=== PATIENT | female | born 1945 | race Two or more races ===

== ENCOUNTER → 2017-08-10 | Outpatient (CLI) | payer MEDICARE ==
[2017-08-10 11:17] LABS: HGB 10.6 gm/dL (11.4-16.0); MCH 30.5 pg (25.0-35.0); MCHC 32.1 g/dL (31.0-37.0); Mean Platelet Volume 7.4; Platelet Count 309 k/uL (150-450); RBC 3.47 m/uL (3.80-5.40); RDW 13.6 % (11.5-15.5); WBC 6.6 k/uL (3.8-10.6)
[2017-08-10 11:20] LABS: Anion Gap 11 mmol/L; Blood Urea Nitrogen 18 mg/dL (7-17); Calcium 9.4 mg/dL (8.4-10.2); Carbon Dioxide 27 mmol/L (22-30); Chloride 102 mmol/L (98-107); Glucose 165 mg/dL (74-99); Potassium 4.7 mmol/L (3.5-5.1); Sodium 140 mmol/L (137-145)
[2017-08-10 11:34] LABS: T4, Free (Free Thyroxine) 1.13 ng/dL (0.78-2.19)
== END | disposition home or self-care (01) ==
LOC: LABWHC1 10:43
PROVIDERS: ATTEND Internal Medicine Interventional Cardiology
DX: E11.9 Type 2 diabetes mellitus without complications (principal); I25.10 Atherosclerotic heart disease of native coronary artery without angina pectoris
CPT/HCPCS: 36415; 80048; 84439; 84443; 85027

== ENCOUNTER → 2017-09-29 | Outpatient (CLI) | payer MEDICARE ==
[2017-09-29 17:09] LABS: HCT 37.8 % (34.0-46.0); HGB 12.3 gm/dL (11.4-16.0); MCH 30.2 pg (25.0-35.0); MCHC 32.5 g/dL (31.0-37.0); Mean Platelet Volume 7.6; Platelet Count 218 k/uL (150-450); RBC 4.07 m/uL (3.80-5.40); RDW 13.1 % (11.5-15.5); WBC 5.7 k/uL (3.8-10.6)
[2017-09-29 17:24] LABS: Anion Gap 13 mmol/L; Blood Urea Nitrogen 13 mg/dL (7-17); Calcium 9.7 mg/dL (8.4-10.2); Carbon Dioxide 26 mmol/L (22-30); Chloride 104 mmol/L (98-107); Glucose 167 mg/dL (74-99); Potassium 4.2 mmol/L (3.5-5.1); Sodium 143 mmol/L (137-145)
== END | disposition home or self-care (01) ==
LOC: LABWHC1 16:25
PROVIDERS: ATTEND Internal Medicine Interventional Cardiology
DX: E11.9 Type 2 diabetes mellitus without complications (principal); I25.10 Atherosclerotic heart disease of native coronary artery without angina pectoris
CPT/HCPCS: 36415; 80048; 85027

== ENCOUNTER → 2017-10-18 | Day surgery (SDC) | payer MEDICARE ==
[2017-10-12 15:45] VITALS: BMI 26.4
[~2017-10-18] MED LIST: ALPRAZolam 0.25 MG TAB PO PRN; ASPIRIN 325 MG TAB PO STA; SODIUM CHLORIDE 0.9% 1,000 ML in EMPTY BAG 1 BAG IV ONE
[2017-10-18 10:21] LABS: Glucose,Whole Blood 163 mg/dL (75-99)
[2017-10-18 10:29] VITALS: BP 146/68; PULSE 69; RESP 20; TEMP 98.1
== END ==
LOC: CATHCVL 09:20
PROVIDERS: ATTEND Internal Medicine Interventional Cardiology
DX: Z53.8 Procedure and treatment not carried out for other reasons (principal)

== ENCOUNTER 2017-10-19 06:03 | Day surgery (SDC) | payer MEDICARE ==
[2017-10-19] MEDS ORDERED: INSULIN ASPART 100 UNIT/ML 1 ML 10 ML VIAL SQ ONE (07:01)
[2017-10-19 07:18] LABS: Glucose,Whole Blood 212 mg/dL (75-99)
[2017-10-19] MEDS ORDERED: IV FLUID CONTINUATION 1,000 ML IV ONE (07:25)
[2017-10-19] MEDS ORDERED: diphenhydrAMINE 50 MG/ML 1 ML VIAL IVP ONE (07:30)
[2017-10-19] MEDS ORDERED: MIDAZOLAM 2 MG/2 ML VIAL IV ONE (07:30)
[2017-10-19] MEDS: NITROGLYCERIN SL TABS 0.4 MG TAB SUBLINGUAL ONE ×2 (07:33→07:46)
[2017-10-19] MEDS ORDERED: LIDOCAINE 2% INJ 20 MG/ML SQ ONE ×2 (07:38→07:39)
[2017-10-19] MEDS: NITROGLYCERIN 1000MCG/10ML SYRINGE INTRAARTER ONE ×4 (07:51→09:02)
[2017-10-19] MEDS ORDERED: BIVALIRUDIN BOLUS 250 MG/50 ML IV ONE (08:06)
[2017-10-19] MEDS ORDERED: BIVALIRUDIN 250 MG in SODIUM CHLORIDE 0.9% 50 ML IV ONE ×2 (08:07→08:46)
[2017-10-19] MEDS ORDERED: IOHEXOL 350 MG/ML 125ML BOTTLE INJ ONE (09:03)
[2017-10-19] MEDS ORDERED: CLOPIDOGREL 75 MG TAB PO ONE (09:05)
[2017-10-19] MEDS ORDERED: RX INFO: IV CONTRAST WAS GIVEN 1 EACH MISC MISCELLANE PRN (09:07)
[2017-10-19] MEDS ORDERED: NITROGLYCERIN SL TABS 0.4 MG TAB SUBLINGUAL PRN ×2 (09:07→09:34)
[2017-10-19] MEDS ORDERED: ATROPINE SULFATE 0.1 MG/ML 10ML SYRINGE IV PRN (09:07)
[2017-10-19] MEDS ORDERED: ZOLPIDEM 5 MG TAB PO PRN (09:07)
[2017-10-19] MEDS ORDERED: MAG HYDROX/AL HYDROX/SIMETH 30 ML CUP PO PRN (09:07)
[2017-10-19] MEDS ORDERED: ACETAMINOPHEN TAB 325 MG TAB PO PRN (09:34)
[2017-10-19 12:43] LABS: Glucose,Whole Blood 136 mg/dL (75-99)
--- NOTE | 2017-10-19 14:52 | CC ---
CARDIAC CATHETERIZATION REPORT DATE OF SERVICE: 10/19/2017. PROCEDURES: 1. Coronary angiography. 2. 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 Treated with drug-eluting stents. ANESTHESIA: Moderate conscious sedation time 88 minutes. CLINICAL INFORMATION: Mrs. Margarita Hawk is a 72-year-old lady with a history of type 2 diabetes, hypertension, hyperlipidemia, who also has significant two-vessel disease. On July 30, 2017 I performed stenting of a relatively large bifurcation lesion involving the circumflex with a good result. I brought her back because of significant ischemia in the RCA distribution and right coronary artery was a almost a chronic total occlusion in the midportion as well as disease in the ostium and proximal segment as well. Distal flow was somewhat poor and there appeared to be a chronic total occlusion with possibly bridging collaterals in the midportion. She was brought in for the procedure electively. PROCEDURE NOTE: Under local anesthesia and strict aseptic precautions, a 6-Thai introducer was placed in the right femoral artery. I performed coronary angiography of the left system to check the patency of circumflex as well as to look at the LAD as well. I then used a right August type guide catheter of 6-Thai caliber to cannulate the right coronary artery. Using a run-through wire, I was able to cross the total occlusion in the midportion, wire was kept distally. I then used a 2.0 caliber balloon to pre-dilate the proximal portion of the RCA. I switched over to 1.5, 15 mm balloon. With this I dilated the mid and distal segments of the RCA. I then used the same 2.0 balloon to dilate the mid and distal segments of the RCA. I used a 2.5 caliber NC Trek balloon with this I dilated the proximal portion. After getting a decent result with balloon angioplasty, I then started deploying stents. Very distally a 2.25 caliber 15 mm Xience stent was deployed and proximal to it were two 2.5 caliber stents of 15 and 12 mm length. The 2 proximal stents were of 2.75 caliber and the most proximal stent actually was in the ostium itself. Excellent angiographic result was achieved with a decent distal flow. Patient tolerated procedure well without complications. An Angio- Seal device was used to secure hemostasis. The patient received Angiomax bolus and infusion as per protocol and she was already on aspirin and Plavix and received additional 150 mg. Results were discussed with the patient and family and I expect she will be discharged tomorrow. CORONARY ANGIOGRAPHY FINDINGS: RIGHT CORONARY ARTERY: This vessel is a chronically occluded vessel in the midportion with probably bridging collaterals, dominant vessel and the caliber of the vessel is quite small distally and there is also some ostial disease with damping on cannulation. This is a dominant RCA. LEFT MAIN CORONARY ARTERY: Short patent disease-free vessel that bifurcates into LAD and circumflex. LEFT ANTERIOR DESCENDING CORONARY ARTERY: Fair caliber vessel extends along the antral wall, gives off septal and diagonal branches, has about a 30-35% narrowing, but no significant disease. LEFT POSTERIOR CIRCUMFLEX CORONARY ARTERY: Nondominant, fair caliber and distribution vessel. In the mid circumflex at the bifurcation, there was a stent placed in the main circumflex as well as in the branch and also I had performed a provisional stenting of the branch as well. Both these branches are widely patent with brisk LUL-3 flow and no evidence of any significant restenosis. FINAL IMPRESSION: This patient has widely patent circumflex system, but highly diseased RCA which is a probably a chronic total occlusion in the midportion and this is a dominant vessel. The LAD has no significant disease. RECOMMENDATION: I recommend intervention of the RCA and that was performed in the same setting. The details of the procedure are noted above. Excellent angiographic result was achieved. Drug-eluting stents were deployed. MMTERE / CARLON: [id number] /
[2017-10-19 17:22] LABS: Glucose,Whole Blood 237 mg/dL (75-99)
[2017-10-19] MEDS: SODIUM CHLORIDE 0.9% 1,000 ML IV SCH ×2 (17:40→20:32)
[2017-10-19] MEDS: HUMALOG MIX SQ SCH (17:41)
[2017-10-19] MEDS: INSULIN ASPART 100 UNIT/ML 1 ML 10 ML VIAL SQ SCH ×2 (17:42→21:19)
[2017-10-19] MEDS: CARVEDILOL 3.125 MG TAB PO SCH (19:28)
[2017-10-19] MEDS: GABAPENTIN 300 MG CAP PO SCH (20:31)
[2017-10-19 20:50] LABS: Glucose,Whole Blood 211 mg/dL (75-99)
[2017-10-19] MEDS ORDERED: ATORVASTATIN 80 MG TAB PO SCH (21:00)
[2017-10-20] MEDS: HUMALOG MIX SQ SCH (05:12)
[2017-10-20 05:46] LABS: Glucose,Whole Blood 196 mg/dL (75-99)
[2017-10-20] MEDS: CARVEDILOL 3.125 MG TAB PO SCH (06:17)
[2017-10-20] MEDS: INSULIN ASPART 100 UNIT/ML 1 ML 10 ML VIAL SQ SCH ×2 (06:17→12:31)
[2017-10-20 07:29] LABS: Basophils # (A) 0.1 k/uL (0-0.2); Basophils % (A) 1 %; Eosinophils # (A) 0.1 k/uL (0-0.7); Eosinophils % (A) 2 %; HCT 35.1 % (34.0-46.0); HGB 11.5 gm/dL (11.4-16.0); Lymphocytes # (A) 1.2 k/uL (1.0-4.8); Lymphocytes % (A) 22 %; MCH 29.4 pg (25.0-35.0); MCHC 32.8 g/dL (31.0-37.0); MCV 89.8 fL (80.0-100.0); Mean Platelet Volume 7.8; Monocytes # (A) 0.4 k/uL (0-1.0); Monocytes % (A) 8 %; Neutrophils # (A) 3.6 k/uL (1.3-7.7); Neutrophils % (A) 65 %; Platelet Count 180 k/uL (150-450); RBC 3.92 m/uL (3.80-5.40); WBC 5.6 k/uL (3.8-10.6)
[2017-10-20] MEDS: GABAPENTIN 300 MG CAP PO SCH (07:49)
[2017-10-20 08:06] LABS: Anion Gap 9 mmol/L; Blood Urea Nitrogen 14 mg/dL (7-17); Calcium 9.1 mg/dL (8.4-10.2); Carbon Dioxide 26 mmol/L (22-30); Chloride 105 mmol/L (98-107); Glucose 196 mg/dL (74-99); Potassium 4.2 mmol/L (3.5-5.1); Sodium 140 mmol/L (137-145)
[2017-10-20] MEDS ORDERED: CLOPIDOGREL 75 MG TAB PO SCH (09:00)
[2017-10-20] MEDS ORDERED: LINAGLIPTIN 5 MG TABLET PO SCH (09:00)
[2017-10-20] MEDS ORDERED: LOSARTAN 25 MG TAB PO SCH (09:00)
[2017-10-20] MEDS ORDERED: ASPIRIN 81 MG PO SCH (09:00)
[2017-10-20] MEDS ORDERED: NON-FORMULARY DRUG (Fish Oil/Dha/Epa [Fish Oil 1,200 Mg Fish Oil] 1 CAP) PO SCH (09:00)
[2017-10-20] MEDS ORDERED: FERROUS SULFATE 325 MG TAB PO SCH (09:00)
[2017-10-20 09:39] VITALS: RESP 18
[2017-10-20 11:25] VITALS: BMI 26.0
[2017-10-20 11:27] LABS: Glucose,Whole Blood 222 mg/dL (75-99)
[2017-10-20] MEDS ORDERED: MULTIVITAMINS, THERA 1 EACH TAB PO SCH (12:00)
--- NOTE | 2017-10-20 13:07 | P.DS ---
Providers Date of admission: 10/19/2017 Expected date of discharge: 10/20/17 Attending physician: John Hamilton Consults: 10/19/17 09:07 Consult Physician Routine Consulting Provider: [facility] Reason/Comments: Post Interventional patient Do you want consulting provider notified?: Already Contacted [facility] Course: Mrs. Hawk is a pleasant 72-year-old female who was brought in yesterday for elective staged intervention of the RCA. Initial catheterizaiton was performed in July 2017. She had significant ischemia in the RCA distribution. This was almost a chronic total occlusion in the midportion. She also had disease in the ostium and proximal segments. She underwent successful angioplasty of the mid and distal segments of the RCA. She received a total of 3 stents in the RCA. Excellent angiographic results noted. The procedure was performed via the right femoral artery Angio-Seal device was used to secure hemostasis. Upon reexamination this morning she is seen resting comfortably in bed with family at the bedside. She has no symptoms of angina. She denies chest pain, shortness of breath, dizziness, palpitations, diaphoresis, nausea or vomiting. She has been up ambulating in the halls without difficulty. She denies pain to the right groin or leg. Right groin is examined soft nontender no evidence of hematoma. 1+ pulse in the right foot. A follow-up appointment has been made with Dr. Hamilton 10/27. Her medications will remain the same. There are no new prescriptions. Plan of care has been discussed with the patient and she verbalizes understanding as well as her family. Instructions have been given for no exertional activity until her follow-up appointment. No heavy lifting, no extreme pushing or pulling and no exercise. Site is clean dry and intact, dressing removed. EKG this morning shows first-degree AV block with no acute ST or T-wave. Laboratory data reviewed, hemoglobin 11.5, platelets 180, potassium 4.2, creatinine 0.59. Blood pressure 113/54 heart rate 79 afebrile maintaining oxygen saturation on room air respirations equal and unlabored GENERAL: Well-appearing, well-nourished and in no acute distress. NECK: Supple without JVD or thyromegaly. LUNGS: Breath sounds clear to auscultation bilaterally. Respiration equal and unlabored. No wheezes, rales or rhonchi. HEART: Regular rate and rhythm without murmurs, rubs or gallops. S1 and S2 heard. EXTREMITIES: Normal range of motion, no edema. No clubbing or cyanosis. Peripheral pulses intact and strong. Right femoral pulses strong. Site clean dry and intact with no tenderness on palpation, no evidence of hematoma, no bruising at the site. Dorsalis pedis pulses 1+ bilaterally. Procedures: Cardiac catheterization with angioplasty Patient Condition at Discharge: Good Plan - Discharge Summary New Discharge Prescriptions: Continue Insulin Lispro Protamin/Lispro [humaLOG Mix 50-50 Kwikpen] 40 units SQ BID-W/ MEALS Gabapentin 600 mg PO TID Multivit-Min/FA/Lycopen/Lutein [Centrum Silver Tablet] 1 tab PO DAILY Fish Oil/Dha/Epa [Fish Oil 1,200 mg Fish Oil] 1 cap PO DAILY Acetaminophen [Tylenol Arthritis] 650 mg PO DAILY PRN PRN Reason: Pain sitaGLIPtin PHOSPHATE [Januvia] 100 mg PO DAILY Aspirin 81 mg PO DAILY #30 chew Atorvastatin [Lipitor] 80 mg PO HS #30 tab Clopidogrel [Plavix] 75 mg PO DAILY #30 tab Losartan [Cozaar] 12.5 mg PO DAILY #30 tab Nitroglycerin Sl Tabs [Nitrostat] 0.4 mg SUBLINGUAL Q5M PRN #25 tab PRN Reason: Chest Pain Ferrous Sulfate [Iron (65 MG Elemental)] 325 mg PO DAILY Carvedilol [Coreg] 3.125 mg PO BID-W/MEALS #0 Discontinued Omeprazole 20 mg PO DAILY Discharge Medication List Acetaminophen [Tylenol Arthritis] 650 mg PO DAILY PRN 07/27/17 [History] Fish Oil/Dha/Epa [Fish Oil 1,200 mg Fish Oil] 1 cap PO DAILY 07/27/17 [History] Gabapentin 600 mg PO TID 07/27/17 [History] Insulin Lispro Protamin/Lispro [humaLOG Mix 50-50 Kwikpen] 40 units SQ BID-W/ MEALS 07/27/17 [History] Multivit-Min/FA/Lycopen/Lutein [Centrum Silver Tablet] 1 tab PO DAILY 07/27/17 [ History] sitaGLIPtin PHOSPHATE [Januvia] 100 mg PO DAILY 07/29/17 [History] Aspirin 81 mg PO DAILY #30 chew 07/31/17 [Rx] Atorvastatin [Lipitor] 80 mg PO HS #30 tab 07/31/17 [Rx] Clopidogrel [Plavix] 75 mg PO DAILY #30 tab 07/31/17 [Rx] Losartan [Cozaar] 12.5 mg PO DAILY #30 tab 07/31/17 [Rx] Nitroglycerin Sl Tabs [Nitrostat] 0.4 mg SUBLINGUAL Q5M PRN #25 tab 07/31/17 [Rx ] Ferrous Sulfate [Iron (65 MG Elemental)] 325 mg PO DAILY 10/12/17 [History] Carvedilol [Coreg] 3.125 mg PO BID-W/MEALS #0 10/19/17 [Rx] Follow up Appointment(s)/Referral(s): John Hamilton MD [STAFF PHYSICIAN] - 10/27/17 4:30 pm Patient Instructions/Handouts: *[facility] - After Heart Catheterization - Moisture Meter Operator Instructions, Heart Healthy Diet (DC), Coronary Intravascular Stent Placement (DC) Discharge Disposition: HOME SELF-CARE
[2017-10-20 13:09] VITALS: BP 149/67; PULSE 78; TEMP 98.6
[2017-10-20 14:27] LABS: Hemoglobin A1C 6.6 % (4.0-6.0)
== END 2017-10-20 13:29 | disposition home or self-care (01) ==
LOC: CATHCVL 06:03 → 6SEL 09:05 → CATHCVL 10-20 13:29
PROVIDERS: ATTEND Internal Medicine Interventional Cardiology
DX: I25.110 Atherosclerotic heart disease of native coronary artery with unstable angina pectoris (principal); I25.82 Chronic total occlusion of coronary artery; I44.0 Atrioventricular block, first degree; E11.9 Type 2 diabetes mellitus without complications; I10 Essential (primary) hypertension; N19 Unspecified kidney failure; E78.00 Pure hypercholesterolemia, unspecified; Z95.5 Presence of coronary angioplasty implant and graft; Z86.711 Personal history of pulmonary embolism; Z82.49 Family history of ischemic heart disease and other diseases of the circulatory system; Z79.02 Long term (current) use of antithrombotics/antiplatelets; Z79.82 Long term (current) use of aspirin; Z79.4 Long term (current) use of insulin; Z79.899 Other long term (current) drug therapy
CPT/HCPCS: 93454; 80048; 85025; 83036; C9607; C1760; C1887; C1725 ×4; C1769 ×3; C1894; C1874; J2001; J2250; J1200; J0583; Q9967

== ENCOUNTER 2018-01-20 22:10 | Emergency (ER) | payer MEDICARE ==
[2018-01-20 22:15] VITALS: RESP 16
[2018-01-20 22:18] LABS: Glucose,Whole Blood 67 mg/dL (75-99)
--- NOTE | 2018-01-20 22:40 | ED ---
General Adult HPI - General Chief complaint: Recheck/Abnormal Lab/Rx Stated complaint: Diabetic issues Time Seen by Provider: 01/20/18 22:13 Source: patient, family, EMS, RN notes reviewed, old records reviewed Mode of arrival: EMS - History of Present Illness Initial comments: This is a 72-year-old female the ER for evaluation of low blood sugar. Patient is recent recently started on insulin, patient had blood sugar dropped 2 at home brought in by EMS his blood sugar underlying normal currently. Patient is eating. History of diabetes. Denies any recent nausea vomiting or diarrhea. Patient denies anorexia will she does feel mildly lightheaded and dizzy. - Related Data Home Medications Medication Instructions Recorded Confirmed Acetaminophen [Tylenol Arthritis] 650 mg PO Q8H PRN 07/27/17 01/20/18 Fish Oil/Dha/Epa [Fish Oil 1,200 1 cap PO DAILY 07/27/17 01/20/18 mg Fish Oil] Insulin Lispro Protamin/Lispro 45 units SQ BID-W/MEALS 07/27/17 10/19/17 [humaLOG Mix 50-50 Kwikpen] Multivit-Min/FA/Lycopen/Lutein 1 tab PO DAILY 07/27/17 01/20/18 [Centrum Silver Tablet] sitaGLIPtin PHOSPHATE [Januvia] 100 mg PO DAILY 07/29/17 01/20/18 Aspirin 325 mg PO DAILY 01/20/18 01/20/18 Atorvastatin [Lipitor] 20 mg PO HS 01/20/18 01/20/18 Baclofen [Lioresal] 10 mg PO HS 01/20/18 01/20/18 Losartan/Hydrochlorothiazide 1 tab PO DAILY 01/20/18 01/20/18 [Hyzaar 100-25 Tablet] Omeprazole [PriLOSEC] 20 mg PO AC-BRKFST 01/20/18 01/20/18 Allergies Allergy/AdvReac Type Severity Reaction Status Date / Time adhesive tape Allergy Rash/Hives Verified 01/20/18 22:36 Review of Systems ROS Statement: Those systems with pertinent positive or pertinent negative responses have been documented in the HPI. ROS Other: All systems not noted in ROS Statement are negative. Past Medical History Past Medical History: Chest Pain / Angina, CVA/TIA, Diabetes Mellitus, GERD/ Reflux, Hyperlipidemia, Hypertension, Osteoarthritis (OA), Pulmonary Embolus (PE ) Additional Past Medical History / Comment(s): See Cardiology H&P,?TIA 2013,PE 2013,arthritis & back pain History of Any Multi-Drug Resistant Organisms: None Reported Past Surgical History: Cholecystectomy Additional Past Surgical History / Comment(s): cataracts,breast bx. 5 stents to RCA 10/19/17 Past Anesthesia/Blood Transfusion Reactions: No Reported Reaction Past Psychological History: No Psychological Hx Reported Smoking Status: Never smoker Past Alcohol Use History: None Reported Past Drug Use History: None Reported - Past Family History Mother Family Medical History: Cancer General Exam General appearance: alert, in no apparent distress Head exam: Present: atraumatic, normocephalic, normal inspection Eye exam: Present: normal appearance, PERRL, EOMI. Absent: scleral icterus, conjunctival injection, periorbital swelling ENT exam: Present: normal exam, mucous membranes moist Neck exam: Present: normal inspection. Absent: tenderness, meningismus, lymphadenopathy Respiratory exam: Present: normal lung sounds bilaterally. Absent: respiratory distress, wheezes, rales, rhonchi, stridor Cardiovascular Exam: Present: regular rate, normal rhythm, normal heart sounds. Absent: systolic murmur, diastolic murmur, rubs, gallop, clicks GI/Abdominal exam: Present: soft, normal bowel sounds. Absent: distended, tenderness, guarding, rebound, rigid Extremities exam: Present: normal inspection, full ROM, normal capillary refill. Absent: tenderness, pedal edema, joint swelling, calf tenderness Back exam: Present: normal inspection Neurological exam: Present: alert, oriented X3, CN II-XII intact Psychiatric exam: Present: normal affect, normal mood Skin exam: Present: warm, dry, intact, normal color. Absent: rash Course Vital Signs 01/20/18 01/20/18 22:11 22:43 Temperature 97.1 F L 97.1 F L Pulse Rate 83 86 Respiratory 16 16 Rate Blood Pressure 171/74 183/79 O2 Sat by Pulse 97 95 Oximetry - Reevaluation(s) Reevaluation #1: 01/20/18 23:08 Patient is able to eat, eating appropriately Reevaluation #2: 01/20/18 23:09 Patient's blood sugars improved, acting appropriately Medical Decision Making - Medical Decision Making 72 female the ER for evaluation of hyperglycemia. Blood sugar low blood sugars resolved. Patient's eating, patient can be discharged home - Lab Data Lab Results 01/20/18 01/20/18 Range/Units 22:17 22:40 POC Glucose (mg/dL) 67 L 87 (75-99) mg/dL POC Glu Trimming Caser ID Brittany Rapp Disposition Clinical Impression: Diabetic hypoglycemia Disposition: HOME SELF-CARE Condition: Good Instructions: Hypoglycemia in a Person with Diabetes (ED) Is patient prescribed a controlled substance at d/c from ED?: No Referrals: Yenni Terrell III, MD [Primary Care Provider] - 1-2 days
[2018-01-20 23:00] LABS: Glucose,Whole Blood 87 mg/dL (75-99)
[2018-01-20] MEDS ORDERED: hydrALAZINE HCL 20 MG/ML 1 ML VIAL IVP STA (23:21)
[2018-01-20 23:43] VITALS: PULSE 87
[2018-01-20 23:58] VITALS: BP 178/82; TEMP 97.6
== END 2018-01-21 00:06 | disposition home or self-care (01) ==
LOC: EC 22:10
DX: E11.649 Type 2 diabetes mellitus with hypoglycemia without coma (principal); K21.9 Gastro-esophageal reflux disease without esophagitis; E78.5 Hyperlipidemia, unspecified; I10 Essential (primary) hypertension; Z86.73 Personal history of transient ischemic attack (TIA), and cerebral infarction without residual deficits; Z79.4 Long term (current) use of insulin; Z79.82 Long term (current) use of aspirin; Z79.899 Other long term (current) drug therapy; Z91.048 Other nonmedicinal substance allergy status
CPT/HCPCS: 36415; 99285; 96374; J0360

== ENCOUNTER → 2020-04-12 | Outpatient (CLI) | payer MEDICARE ==
--- NOTE | 2020-04-12 13:12 | XR ---
EXAMINATION TYPE: XR lumbar spine 2 or 3V DATE OF EXAM: 04/12/2020 Comparison: None Clinical History: 74-year-old female M25.552, M54.16, M54.5 Findings: Leftward truncal shift. Osteopenia. Cholecystectomy clips. Bulky anterior and plate spondylosis L2-L3 . Prominent grade 1 anterolisthesis at L4-L5. Advanced hypertrophic facet arthropathy mid to lower gavin mbar spine. Remaining alignment is maintained. Scattered mild degenerative disc disease throughout. V ertebral body heights are preserved. Impression: 1. Leftward truncal shift could be positional or due to muscle spasm. 2. Advanced hypertrophic facet arthropathy mid to lower lumbar spine with prominent grade 1 anterolis thesis at L4-L5. 3. Bulky anterior endplate spondylosis L2-L3. Mild multilevel degenerative disc disease.
--- NOTE | 2020-04-12 13:16 | XR ---
EXAMINATION TYPE: XR Hip Complete LT DATE OF EXAM: 04/12/2020 COMPARISON: NONE HISTORY: 74-year-old female with pain. M25.552, M54.16, M54.5 TECHNIQUE: 2 views FINDINGS: Mild to moderate degenerative change of the left hip with prominent marginal spurring and mild axial joint space narrowing. Possible subtle lucency involving the inferior pubic ramus on the AP view. Thi s is not as well-demonstrated on the lateral view, possibly projectional. There is some faint calcifi cations projecting in the region of the ischial tuberosity that could relate to chronic hamstrings te ndinopathy. Vascular calcifications are also present. No acute fracture, subluxation, dislocation is seen. IMPRESSION: 1. Mild to moderate left hip OA. No acute osseous abnormality seen. 2. Questionable vague hypodensity involving the inferior pubic ramus and some adjacent faint soft tis nayeli calcifications. The calcifications may relate to chronic hamstring tendinopathy and the hypodensi ty may be technical artifact. Given the patient's pain, CT recommended to exclude an abnormal permeat camron/erosive process.
== END | disposition home or self-care (01) ==
LOC: RADXRMAIN 11:43
PROVIDERS: ATTEND Physician Assistant Medical
DX: M16.12 Unilateral primary osteoarthritis, left hip (principal); M43.16 Spondylolisthesis, lumbar region; M51.16 Intervertebral disc disorders with radiculopathy, lumbar region; M47.26 Other spondylosis with radiculopathy, lumbar region
CPT/HCPCS: 72100; 73502

== ENCOUNTER → 2024-01-31 | Outpatient (CLI) | payer MEDICARE ==
[2024-01-31 10:44] LABS: African American GFR (CKD) 87 (>60 ml/min/1.73 sqM); Blood Urea Nitrogen 26 mg/dL (7-17); Non-African American GFR(CKD) 76 (>60 ml/min/1.73 sqM)
--- NOTE | 2024-01-31 13:23 | CT ---
EXAMINATION TYPE: CT angio abd aorta w/Runoff DATE OF EXAM: 01/31/2024 COMPARISON: 06/03/2013 HISTORY: 78-year-old female I70.211 PAD, pt states RT leg is worse than LT. TECHNIQUE: Contiguous axial scanning of the abdomen and pelvis performed without and with IV Contrast , patient injected with 100 mL of Isovue 370. Post contrast exam performed with bilateral lower extre mity runoff. Coronal/sagittal reconstructions performed. 3-D reconstructions generated on a dedicated independent workstation. CT DLP: 1263.60 mGycm Automated exposure control for dose reduction was used. FINDINGS: Abdomen pelvis: Heart borderline enlarged without pericardial effusion. Three-vessel coronary artery calcifications a re present. Some mild scattered interstitial fibrosis in the lower lungs. No pleural effusion. Small hiatal hernia. Noncontrast and arterial phase imaging of the liver, adrenal glands, spleen, and pancreas show no samantha ss anomaly. Bile duct shows increasing caliber now 1.3 cm versus 9 mm in 2013, probably related to chronic postch olecystectomy status. Cortical defects right greater than left kidneys likely due to development of interval vascular infec tious insults. 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 No nephrolithiasis or hydronephrosis is seen. No dilated small bowel, free fluid, or free air. No mesenteric or retroperitoneal lymphadenopathy. There is a fatty umbilical hernia measuring 6.7 cm wide now versus 5.7 cm in 2013. Scattered mild to moderate stool burden. No pericolic inflammatory change. Bladder is urine distended. Uterus surgically absent. Pelvic floor relaxation. Multiple pelvic phlebo liths. Ovaries not clearly seen. No abnormal fluid collection in the pelvis or pelvic lymphadenopathy . Bones: Baastrup's disease. Severe hypertrophic facet arthropathy throughout with degenerative grade 1 buffy listhesis L4-L5. Severe spinal canal stenosis. L4-L5. Vasculature: Scattered mild to moderate atherosclerotic calcifications abdominal aorta and common iliac arteries. No aneurysm. There is a replaced proper hepatic artery which arises from the SMA. Scattered mild atherosclerotic c hanges are present within both the celiac axis and SMA. [id number] atherosclerotic narrowing proximal right renal artery and mild at the possible left renal artery. Right: Mild segmental stenosis proximal right common iliac artery secondary to mixed plaque. LEAD COATER is patent. PFA is patent. Moderate atherosclerotic change throughout the SFA. There may be a moderate to severe focal stenosis distal SFA at the adductor hiatus. Axial image 306. Possible severe atherosclerotic stenosis upper popliteal artery, axial image 319. Moderate stenosis throughout the remainder of the popliteal artery. Severe focal stenosis lower popliteal artery just before the takeoff of the anterior tibial artery. Moderate stenosis at the origin of the anterior tibial artery with single vessel runoff. There is occ lusion at the tibial peroneal trunk. Left: The LEAD COATER and PFA are patent. Mild atherosclerotic narrowing throughout the SFA. Severe focal stenosis proximal popliteal artery, axial image 314 followed by moderate atherosclerotic irregularity throughout the remainder of the popliteal artery. Anterior tibial artery is patent with mild narrowing at its origin. [id number] atherosclerotic irregularity within the tibial peroneal trunk with a severe focal st enosis at its bifurcation, axial image 399. Visualization of the peroneal artery. There is occlusion of the posterior tibial artery. Two-vessel runoff via the anterior tibial and peroneal arteries. IMPRESSION: RIGHT: 1. A moderate to severe focal stenosis distal SFA at the adductor hiatus. 2. Severe focal stenosis of both the proximal popliteal artery and also distal popliteal artery just before the takeoff of the anterior tibial artery. 3. Moderate focal stenosis of the origin of the anterior tibial artery. This vessel provides for sing le vessel runoff. 4. Occlusion at the tibioperoneal trunk. Left: 5. Severe focal stenosis proximal popliteal artery with moderate atherosclerotic irregularity through out the remainder of the popliteal artery. 6. Severe focal stenosis distal tibial peroneal trunk. 7. Occluded posterior tibial artery. 8. Two-vessel runoff via the anterior tibial and peroneal arteries. Abdomen and pelvis: 9. Cortical defects within the kidneys suggesting interval development of multiple infectious or vasc ular insults as compared to 2013. 10. Moderate sized fatty umbilical hernia now 6.7 cm, increased from 2013. 11. Pelvic floor relaxation. Status post hysterectomy. 12. Hypertrophic facet arthropathy with degenerative grade 1 anterolisthesis at L4-L5 with suspected severe focal spinal canal stenosis here.
== END | disposition home or self-care (01) ==
LOC: RADCTMAIN 10:11
PROVIDERS: ATTEND Internal Medicine
DX: I70.0 Atherosclerosis of aorta (principal); I70.211 Atherosclerosis of native arteries of extremities with intermittent claudication, right leg; K42.9 Umbilical hernia without obstruction or gangrene; M47.816 Spondylosis without myelopathy or radiculopathy, lumbar region; M43.16 Spondylolisthesis, lumbar region; M51.36 Other intervertebral disc degeneration, lumbar region
CPT/HCPCS: 82565; 84520; 75635; 36415; Q9967

== ENCOUNTER 2024-03-22 12:00 | Inpatient (IN) | payer MEDICARE ==
[2024-03-23] MEDS ORDERED: fentaNYL (PF) 50 MCG/ML 2 ML AMP ONE ×2 (11:02)
[2024-03-23] MEDS ORDERED: HEPARIN SODIUM 1,000 UN/ML (10ML VL) ONE ×2 (11:02)
[2024-03-23] MEDS ORDERED: MIDAZOLAM 2 MG/2 ML VIAL ONE (11:03)
[2024-03-23] MEDS ORDERED: LIDOCAINE 1% INJ 10MG/ML (20 ML MDV) ONE (11:37)
[2024-03-23] MEDS ORDERED: HEPARIN SODIUM,PORCINE 10,000 UNIT/ML 1 ML VIAL ONE (11:37)
[2024-03-23] MEDS ORDERED: SODIUM CHLORIDE 0.9% 1,000 ML BAG ONE ×2 (11:37)
[2024-03-23] MEDS ORDERED: IOPAMIDOL-250 100ML BTL ONE (11:37)
[2024-03-23] MEDS: IOPAMIDOL-370 200ML BTL INJ ONE (12:35)
[2024-03-23] MEDS ORDERED: ACETAMINOPHEN TAB 325 MG TAB ONE ×2 (15:15)
[2024-03-23] MEDS ORDERED: INSULIN ASPART (NovoLOG) 100 UNIT/ML VIAL SQ ONE ×2 (15:27→21:39)
[2024-03-23] MEDS ORDERED: FERROUS SULFATE 325 MG TAB PO ONE (21:38)
[2024-03-23] MEDS ORDERED: ATORVASTATIN 80 MG TAB ONE (21:39)
[2024-03-23] MEDS ORDERED: carvediloL 6.25 MG TAB ONE (21:39)
[2024-03-23] MEDS ORDERED: GABAPENTIN 300 MG CAP ONE (21:43)
[2024-03-24] MEDS ORDERED: INSULIN ASPART (NovoLOG) 100 UNIT/ML VIAL SQ ONE ×2 (05:51→13:21)
[2024-03-24] MEDS ORDERED: GABAPENTIN 300 MG CAP ONE (09:21)
[2024-03-24] MEDS ORDERED: FERROUS SULFATE 325 MG TAB PO ONE (09:22)
[2024-03-24] MEDS ORDERED: CLOPIDOGREL 75 MG TAB ONE (09:22)
[2024-03-24] MEDS ORDERED: LOSARTAN 25 MG TAB ONE (09:22)
[2024-03-24] MEDS ORDERED: SPIRONOLACTONE 25 MG TAB ONE (09:23)
--- NOTE | 2024-05-10 23:48 | IR ---
EXAMINATION TYPE: IR airplane captain femoral popliteal Intraoperative/procedural fluoroscopic services were provi ded. CLINICAL INDICATION:Female, 78 years old with history of right leg pain, 15.7min fluoro, 33.9Gycm2; , [facility] Total fluoroscopy time is 15.7 min. DAP: 33.9 Gycm2 uGym2 Please see the operative/procedural note for further details. [facility], , 05/10/2024 11:46 PM
== END 2024-03-24 15:04 | disposition home or self-care (01) | DRG 301 ==
LOC: CATHCVL 12:00 → 6NMEDSUR 03-23 16:03
PROVIDERS: ADMIT Internal Medicine; ATTEND Internal Medicine
DX: E11.51 Type 2 diabetes mellitus with diabetic peripheral angiopathy without gangrene (principal); I25.10 Atherosclerotic heart disease of native coronary artery without angina pectoris; I65.21 Occlusion and stenosis of right carotid artery; I70.211 Atherosclerosis of native arteries of extremities with intermittent claudication, right leg; M54.10 Radiculopathy, site unspecified; I08.1 Rheumatic disorders of both mitral and tricuspid valves; Z95.5 Presence of coronary angioplasty implant and graft
CPT/HCPCS: 37224; 37252; 75625; 75716